=== PATIENT | female | born 1945 | race Caucasian/White ===

== ENCOUNTER 2018-12-17 11:08 | Inpatient (IN) | payer MEDICARE, MEDICAID ==
[~2018-12-17] VITALS: Ht 152.4 cm; Wt 121.0 kg
[2018-12-17] MEDS ORDERED: ALBUTEROL 0.5% (NEB) 2.5 MG/0.5 ML AMP INH STA (11:31)
[2018-12-17] MEDS ORDERED: METHYLPREDNISOLONE 125 MG INJ IV STA (11:31)
[2018-12-17] MEDS ORDERED: SOD CHLORIDE 0.9% 500 ML IV STA (11:31)
--- NOTE | 2018-12-17 11:48 | ERD ---
ER Documentation Chief Complaint Chief Complaint mild sob with low o2 sats per staff, no cough or congestion . mild rhonchi HPI 73-year-old woman brought in by EMS from shelter for shortness of breath, difficulty breathing, oxygen desaturation occurring for a few minutes prior to arrival. Patient does have obesity and psychiatric illness and is mostly bedbound. HPI was supplemented by speaking to EMS, reviewing shelter records, and later speaking to PMD over the phone. She has had no recent fevers or chills, no vomiting or diarrhea. ROS All systems reviewed and are negative except as per history of present illness. Medications Home Meds Reported Medications Escitalopram Oxalate* (Lexapro*) 5 Mg Tablet, 5 MG PO DAILY, #30 TAB 12/17/18 Benazepril Hcl* (Lotensin*) 20 Mg Tablet, 20 MG PO DAILY, #30 TAB HOLD FOR SBP <110 OR OR 60 12/17/18 Amlodipine Besylate* (Norvasc*) 10 Mg Tablet, 10 MG PO DAILY, TAB HOLD FOR SBP <110 OR OR<60 12/17/18 Lorazepam* (Lorazepam*) 1 Mg Tablet, 1 MG PO BID PRN for ANXIETY, #30 TAB 12/17/18 Aspirin (Low Dose Aspirin) 81 Mg Tablet.dr, 81 MG PO DAILY, #30 TAB 12/17/18 Allergies Allergies: Uncoded Allergies: COUGH DROPS (Allergy, Unknown, 12/17/18) PMhx/Soc Morbid obesity, schizophrenia, bedbound state, hypertension, history of [place], GERD, hypertension, chronic bronchitis (COPD?) FmHx Family History: No diabetes Physical Exam Vitals Vital Signs Date Temp Pulse Resp B/P (MAP) Pulse Ox O2 O2 Flow FiO2 Time Delivery Rate 12/17/18 92 20 115/61 91 Room Air 12:21 (79) 12/17/18 98.1 92 20 150/102 92 12:15 (118) 12/17/18 98 25 88 21 12:09 12/17/18 Nasal 4 11:20 Cannula 12/17/18 98.0 113 18 156/99 91 11:17 (118) Physical Exam GENERAL: Well-developed, well-nourished, appears dehydrated, dyspneic, afebrile HEENT: Dry mucous membranes, pink conjunctiva, no cervical spine tenderness or step-off deformities NEURO: Alert and oriented 1, pupils equal round reactive to light, no facial asymmetry, responsive to verbal stimuli CARDIAC: Tachycardic and regular, no murmurs rubs or gallops LUNGS: Diffuse wheezing bilaterally ABDOMEN: Soft nontender, no rigidity SKIN: Warm and dry to touch, no abrasions, contusions, or hematomas, no lacerations, no ecchymosis, no target lesions, and without ulcers EXTREMITIES: No clubbing cyanosis or edema, calves are bilaterally symmetrical, no Homans sign, no popliteal cord sign. Distal pulses equal and bilateral PSYCH: Agitated Result Diagram: 12/17/18 1131 12/17/18 1131 Results 24 hrs Laboratory Tests Test 12/17/18 11:27 12/17/18 11:31 12/17/18 11:33 Bedside Glucose 136 mg/dL White Blood Count 9.2 10^3/ul Red Blood Count 4.57 10^6/ul Hemoglobin 13.4 g/dl Hematocrit 43.4 % Mean Corpuscular Volume 95.0 fl Mean Corpuscular Hemoglobin 29.3 pg Mean Corpuscular 30.9 g/dl Hemoglobin Concent Red Cell Distribution Width 17.0 % Platelet Count 126 10^3/UL Mean Platelet Volume 10.9 fl Immature Granulocytes % 0.500 % Neutrophils % 50.2 % Lymphocytes % 38.3 % Monocytes % 10.3 % Eosinophils % 0.4 % Basophils % 0.3 % Nucleated Red Blood Cells % 0.0 /100WBC Immature Granulocytes # 0.050 10^3/ul Neutrophils # 4.6 10^3/ul Lymphocytes # 3.5 10^3/ul Monocytes # 1.0 10^3/ul Eosinophils # 0.0 10^3/ul Basophils # 0.0 10^3/ul Nucleated Red Blood Cells # 0.0 10^3/ul Urine Color YELLOW Urine Clarity SLIGHTLY CLOUDY Urine pH 5.0 Urine Specific [place] 1.016 Urine Ketones TRACE mg/dL Urine Nitrite NEGATIVE mg/dL Urine Bilirubin NEGATIVE mg/dL Urine Urobilinogen NEGATIVE mg/dL Urine Leukocyte Esterase NEGATIVE Froylan/ul Urine Microscopic RBC 1 /HPF Urine Microscopic WBC 2 /HPF Urine Mucus FEW /HPF Urine Hemoglobin NEGATIVE mg/dL Urine Glucose NEGATIVE mg/dL Urine Total Protein NEGATIVE mg/dl Blood Gas Specimen Source Blood arterial Arterial Blood Date Drawn 12/17/2018 12:20:18 PM Arterial Blood pH 7.349 (Temp corrected) Arterial Blood pCO2 47.9 mmhg (Temp correct) Arterial Blood pO2 55.3 mmHG (Temp corrected) Arterial Blood HCO3 25.8 mmol/L Arterial Blood Base Excess -0.3 mmol/L Arterial Blood 87.4 mmHG Oxygen Saturation Gonzales Test ACCEPTAB Arterial Blood Gas Right Radial Puncture Site Arterial 1.0 % Blood Carboxyhemoglobin Arterial Blood 0.3 % Methemoglobin Blood Gas A-a O2 37.1 mmHg Differential Oxyhemoglobin Percent 86.3 % Blood Gas Temperature 37.0 C Blood Gas Modality ROOM AIR FiO2 21.0 % Blood Gas Notified Whom M.D. Blood Gas Notified Time 12/17/2018 12:31:39 PM Sodium Level 140 mmol/L Potassium Level 6.0 mmol/L Chloride Level 103 mmol/L Carbon Dioxide Level 26 mmol/L Anion Gap 11 Blood Urea Nitrogen 30 mg/dl Creatinine 1.42 mg/dl Est Glomerular Filtrat mL/min Rate mL/min Glucose Level 135 mg/dl Calcium Level 8.8 mg/dl Total Bilirubin 0.1 mg/dl Direct Bilirubin 0.00 mg/dl Indirect Bilirubin 0.1 mg/dl Aspartate Amino 75 IU/L Transf (AST/SGOT) Alanine 72 IU/L Aminotransferase (ALT/SGPT) Alkaline Phosphatase 87 IU/L Troponin I 0.030 ng/ml B-Type Natriuretic Peptide 1100 PG/ML Total Protein 7.5 g/dl Albumin 3.6 g/dl Globulin 3.90 g/dl Albumin/Globulin Ratio 0.92 Lipase 70 U/L POC Venous Lactate 2.3 mmol/L Current Medications Medications Dose Sig/Estiven Start Time Status Last (Trade) Ordered Route PRN Stop Time Admin Dose Reason Admin Albuterol 10 mg ONCE STAT 12/17/18 DC 12/17/18 (Proventil INH 11:31 12:09 0.5% (Neb)) 12/17/18 11:35 125 mg ONCE STAT 12/17/18 DC 12/17/18 Methylprednis IV 11:31 11:45 olone Sodium 12/17/18 11:35 Succinate (Solu-Medrol) Sodium 500 ml @ Q1H STAT 12/17/18 DC 12/17/18 Chloride 500 mls/hr IV 11:31 11:45 12/17/18 12:30 Oseltamivir 150 mg ONCE ONCE 12/17/18 DC 12/17/18 Phosphate PO 12:30 12:57 (Tamiflu) 12/17/18 12:49 Procedures/MDM IV line was established patient was placed on chief medical physicist rhythm strip revealed a wide-complex tachycardia at 110 bpm with upright P and T waves. Patient was afebrile 1 view chest x-ray performed, read by me revealed cardiomegaly and a rotated film, atelectatic changes bilaterally, no acute infiltrates, no pneumothorax. EKG performed, read by me revealed a sinus tachycardia at 103 bpm, normal axis, left bundle branch block, no concerning ST elevations or depressions noted I administered 500 cc normal saline IV, methylprednisolone 125 mg IV, albuterol 10 mg via nebulizer Influenza A was positive, flu B was negative I administered Tamiflu 150 mg p.o. ABG on room air revealed a pH of 7.35, PCO2 48, PO2 55 consistent with COPD CBC was normal, electrolytes revealed acute hyperkalemia with potassium of 6 and dehydration and acute kidney injury with a BUN/creatinine of 30/1.4, liver function tests were normal, troponin was negative, BNP elevated, urinalysis negative for infection. Lactic acid elevated at 2.3. I do not suspect sepsis I feel lactic acid elevation is due to dehydration and COPD exacerbation Critical Care: Time: 43 minutes, this was time separate from other billable procedures. Treatments/Evaluations: Close monitoring and treatment of unstable vital signs, cardiorespiratory, and neurologic status, while maintaining tight balance of fluid, respiratory, and cardiac interventions. I treated the patient with dextrose 25 g IV and regular insulin 8 units IV for hyperkalemia in addition to the albuterol. I spoke to patient's PMD, patient will be admitted to telemetry setting for con tinued medical management and bronchodilator therapy Departure Diagnosis: Primary Impression: COPD (chronic obstructive pulmonary disease) COPD type: COPD with acute exacerbation Qualified Codes: J44.1 - Chronic obstructive pulmonary disease with (acute) exacerbation Additional Impressions: Influenza A H1N1 infection Psychosis Psychosis type: unspecified psychosis type Qualified Codes: F29 - Unspecified psychosis not due to a substance or known physiological condition Dehydration Acute kidney injury Acute hyperkalemia Condition: PJ Chin MD Dec 17, 2018 11:48
[2018-12-17] MEDS ORDERED: OSELTAMIVIR 75 MG CAP PO ONE (12:30)
[2018-12-17] MEDS ORDERED: LORA1TAB PO (12:55)
[2018-12-17] MEDS ORDERED: ASPI81TA52 PO (12:55)
[2018-12-17] MEDS ORDERED: AMLO-218 PO (12:56)
[2018-12-17] MEDS ORDERED: ESCI5TAB PO (12:57)
[2018-12-17] MEDS ORDERED: BENA20TA65 PO (12:57)
[2018-12-17] MEDS ORDERED: DIVA-48 PO (12:58)
[2018-12-17] MEDS ORDERED: DOCU-144 PO (12:58)
[2018-12-17] MEDS ORDERED: CLON-379 PO (12:59)
[2018-12-17] MEDS ORDERED: CLON1PAT32 TD (13:01)
[2018-12-17] MEDS ORDERED: SENN-36 PO (13:01)
[2018-12-17] MEDS ORDERED: PANT40TA3 PO (13:01)
[2018-12-17] MEDS ORDERED: QUET200T PO (13:02)
[2018-12-17] MEDS ORDERED: DEXTROSE 50% 50 ML SYRINGE IV STA (13:05)
[2018-12-17] MEDS ORDERED: INSULIN REGULAR, HUMAN 100 UNIT/1 ML 3ML VIAL IVP STA (13:05)
[2018-12-17] MEDS ORDERED: DEXTROSE 50% 50 ML SYRINGE IV PRN (13:30)
[2018-12-17] MEDS ORDERED: OLANZAPINE 10 MG VIAL IM ONE (15:00)
[2018-12-17 17:02] VITALS: PULSE 77
[2018-12-17 17:06] VITALS: BP 129/84; PULSE 75; RESP 20
[2018-12-17] MEDS ORDERED: CLONIDINE 0.2 MG/24 HR PATCH TRANSDERM SCH (18:00)
[2018-12-17] MEDS ORDERED: ALBUTEROL/IPRATROPIUM (NEB) 3 ML AMP HHN PRN (18:00)
[2018-12-17 18:13] VITALS: Ht 152.4 cm; Wt 121.0 kg
[2018-12-17] MEDS ORDERED: PENDING SANTYL ORDER FOR WOUND CARE XX PRN (19:00)
[2018-12-17 20:03] VITALS: BP 121/61; PULSE 73; RESP 20
[2018-12-17] MEDS: ALBUTEROL/IPRATROPIUM (NEB) 3 ML AMP HHN SCH (20:20)
[2018-12-17 21:13] VITALS: PULSE 77
[2018-12-17] MEDS: DIVALPROEX (EC) 500 MG TAB PO SCH (21:25)
[2018-12-17] MEDS: QUETIAPINE 100 MG TAB PO SCH (21:25)
[2018-12-17] MEDS: LORAZEPAM 1 MG TAB PO PRN (21:25)
[2018-12-17] MEDS: OSELTAMIVIR 75 MG CAP PO SCH (21:25)
[2018-12-17] MEDS: SENNA TAB PO SCH (21:25)
[2018-12-18] VITALS (13 sets, daily range): BP systolic 120–154; BP diastolic 59–80; PULSE 69–95; RESP 18–20
[2018-12-18] MEDS: ALBUTEROL/IPRATROPIUM (NEB) 3 ML AMP HHN SCH ×3 (08:00→20:00)
[2018-12-18] MEDS: AMLODIPINE 10 MG TAB PO SCH (09:00)
[2018-12-18] MEDS: OSELTAMIVIR 75 MG CAP PO SCH (09:00)
[2018-12-18] MEDS: SENNA TAB PO SCH ×2 (09:00→21:04)
[2018-12-18] MEDS: ASPIRIN (EC) 81 MG TAB PO SCH (09:00)
[2018-12-18] MEDS: DIVALPROEX (EC) 500 MG TAB PO SCH ×3 (09:00→21:04)
[2018-12-18] MEDS: QUETIAPINE 100 MG TAB PO SCH ×2 (09:00→21:04)
[2018-12-18] MEDS: PANTOPRAZOLE (EC) 40 MG TAB PO SCH (09:00)
[2018-12-18] MEDS: BENAZEPRIL 20 MG TAB PO SCH (09:00)
[2018-12-18] MEDS: ESCITALOPRAM 10 MG TAB PO SCH (09:00)
[2018-12-18] MEDS: DOCUSATE SODIUM 100 MG CAP PO SCH (09:00)
--- NOTE | 2018-12-18 11:32 | HP ---
DATE OF ADMISSION: 12/17/2018 HISTORY OF PRESENT ILLNESS: A 73-year-old female who was transferred upon my request from [facility] half-way facility for acute desaturation of oxygen. She was fine a few hours earlier, but then, when the nurse came in and found her that she is grasping for air, desaturating, 911 was called and she was transferred to the hospital. This is a patient who has past medical history of dementia , depression, bipolar disease with psychosis. She has generalized weakness, schizoaffective disorder , anxiety, hypothyroidism, obesity, pseudobulbar affect, hypercholesterolemia, hypertension, non-ST e levated MT in the past, gastroesophageal reflux disease, and insomnia. PAST SURGICAL HISTORY: Patient surgeries in the past, unknown of any surgeries. HOME MEDICATIONS: 1. Lexapro 5 mg p.o. daily. 2. Benazepril 20 mg p.o. daily. 3. Amlodipine 10 mg p.o. daily. 4. Lorazepam 1 mg b.i.d. for anxiety. 5. Aspirin 81 mg p.o. daily. ALLERGIES: NO KNOWN ALLERGIES. ACCORDING TO THEM WERE SOME COUGH DROPS. ALLERGIES: Unknown of any family history. No history of diabetes according to her. SOCIAL HISTORY: She resides at a half-way facility and she is most of the time confused, not reliable source of information, bipolar, schizoaffective, with psychosis. REVIEW OF SYSTEMS: Even though she is not a very reliable source, but at this time, she complains of shortness of breath and cough. She denies of any chest pain, denies of any abdominal pain, denies o f any nausea or vomiting. She denies of any hesitancy, urgency or pain during urination, and she den ies of any numbness of one side or the other. PHYSICAL EXAMINATION: GENERAL: She is alert and oriented -1, unknown if she is oriented. HEENT: Atraumatic, normocephalic. Pupils are equal and reactive to light. Extraocular muscles are intact. Nares are clear, no obstruction, no deviation of the septum. Oral cavity, normal oral hygie ne. Ear canals are clear, no signs of inflammation or infection. Tympanic membranes are intact. NECK: Supple. No JVD, no surgical scars, no lymph nodes palpable over the neck. CHEST: AP contour is within normal limits. BREASTS: Nipples are normal, no nipple retraction. HEART: S1, S2, regular rate and rhythm with cardiomegaly and systolic murmur over the apex. ABDOMEN: Soft, obese. Positive bowel sounds, no hepatosplenomegaly, no masses palpable over the abd omen and no rebound tenderness. LUNGS: She has scattered rhonchi over the lungs with mild expiratory wheezes, otherwise negative. ABDOMEN: As I mentioned. EXTREMITIES: No edema, clubbing or cyanosis of the extremities. LABORATORY DATA: CBC is 9.2, hemoglobin 13.4, hematocrit 43.4, and platelet 126. Then chemistry, he r BUN is 30, creatinine 1.42, sodium 140, potassium 6 high. ADMITTING DIAGNOSES: Acute dehydration, possible pneumonia, acute respiratory distress, chronic obst ructive pulmonary disease exacerbation, psychosis, acute kidney injury, hypertension. PLAN: The patient will be admitted to telemetry. We will start on IV hydration and antibiotics, and we will follow. Dictated By: BASIL PRINCE/EMORY Conf#: [id number] DID#: [id number]
[2018-12-18] MEDS: LORAZEPAM 1 MG TAB PO PRN (11:38)
--- NOTE | 2018-12-18 12:35 | PSY ---
Date/Time of Note Date/Time of Note DATE: 12/18/18 TIME: 12:26 Psychiatric Subjective Eval Consent Pt consented to telemedicine: No Subjective Evaluation Patient location: inpatient Chief Complaint: mild sob with low o2 sats per staff, no cough or congestion . mild rhonchi History of present illness Patient is a 73-year-old female who is currently admitted on the telemetry unit for acute desaturation of oxygen. On a [id number] evaluation, patient is very disorganized and confused, she is intrusive with poor boundaries she acts very bizarre difficult to redirect patient has poor impulse control has really does delusion states she has come to save the world. Was going off on tangents she talks nonsensical in poor contact with reality. Explained risk and benefits of medications and she states she wants 100 tablets of Seroquel because Seroquel makes her eyes open. We will continue to provide supportive therapy Past psychiatric history Long history of mental illness Hospitalization: other Medical history Problems Medical Problems: (1) Acute hyperkalemia Status: Acute (2) Acute kidney injury Status: Acute (3) COPD (chronic obstructive pulmonary disease) Status: Acute (4) Dehydration Status: Acute (5) Influenza A H1N1 infection Status: Acute (6) Psychosis Status: Acute Allergies: Uncoded Allergies: COUGH DROPS (Allergy, Unknown, 12/17/18) Substance Abuse Substance use: other Substance abuse history: No Prior substance abuse treatmen: No Social History Marital status: other DPA/Conservatorship: No Psychiatric Objective Eval Review of Systems: Review of Systems: Not Applicable Physical Examination: Appetite: Adequate Energy: Adequate Mental Status Examination: Appearance: Groomed Eye Contact: Good Psychomotor Activity: Slow Behavior: Cooperative, Suspicious Speech: Disorganized Mood: Anxious Though Process: Loose Thought Content: Hallucinations Orientation: x2 Cognition: Alert Insight: Severe Judgement: Severe Attention Span: Distractible Laboratory Results Laboratory Tests Test 12/17/18 11:27 12/17/18 11:31 12/17/18 11:33 12/17/18 13:24 Bedside Glucose 136 mg/dL 133 mg/dL White Blood 9.2 10^3/ul Count Red Blood Count 4.57 10^6/ul Hemoglobin 13.4 g/dl Hematocrit 43.4 % Mean Corpuscular 95.0 fl Volume Mean Corpuscular 29.3 pg Hemoglobin Mean Corpuscular 30.9 g/dl Hemoglobin Christi nt Red Cell 17.0 % Distribution Width Platelet Count 126 10^3/UL Mean Platelet 10.9 fl Volume Immature 0.500 % Granulocytes % Neutrophils % 50.2 % Lymphocytes % 38.3 % Monocytes % 10.3 % Eosinophils % 0.4 % Basophils % 0.3 % Nucleated Red 0.0 /100WBC Blood Cells % Immature 0.050 10^3/ul Granulocytes # Neutrophils # 4.6 10^3/ul Lymphocytes # 3.5 10^3/ul Monocytes # 1.0 10^3/ul Eosinophils # 0.0 10^3/ul Basophils # 0.0 10^3/ul Nucleated Red 0.0 10^3/ul Blood Cells # Urine Color YELLOW Urine Clarity SLIGHTLY CLOUDY Urine pH 5.0 Urine Specific 1.016 [place] Urine Ketones TRACE mg/dL Urine Nitrite NEGATIVE mg/dL Urine Bilirubin NEGATIVE mg/dL Urine NEGATIVE mg/dL Urobilinogen Urine Leukocyte NEGATIVE Froylan/ul Esterase Urine 1 /HPF Microscopic RBC Urine 2 /HPF Microscopic WBC Urine Mucus FEW /HPF Urine Hemoglobin NEGATIVE mg/dL Urine Glucose NEGATIVE mg/dL Urine Total NEGATIVE mg/dl Protein Blood Gas Blood arterial Specimen Source Arterial Blood 12/17/2018 12:20: Date Drawn 18 PM Arterial Blood 7.349 pH (Temp corrected) Arterial Blood 47.9 mmhg pCO2 (Temp correct) Arterial Blood 55.3 mmHG pO2 (Temp corrected) Arterial Blood 25.8 mmol/L HCO3 Arterial Blood -0.3 mmol/L Base Excess Arterial Blood 87.4 mmHG Oxygen Saturatio n Gonzales Test ACCEPTAB Arterial Blood Right Radial Gas Puncture Site Arterial 1.0 % Blood Carboxyhem oglobin Arterial Blood 0.3 % Methemoglobin Blood Gas A-a O2 37.1 mmHg Differential Oxyhemoglobin 86.3 % Percent Blood Gas 37.0 C Temperature Blood Gas ROOM AIR Modality FiO2 21.0 % Blood Gas M.D. Notified Whom Blood Gas 12/17/2018 12:31: Notified Time 39 PM Sodium Level 140 mmol/L Potassium Level 6.0 mmol/L Chloride Level 103 mmol/L Carbon Dioxide 26 mmol/L Level Anion Gap 11 Blood Urea 30 mg/dl Nitrogen Creatinine 1.42 mg/dl Est Glomerular mL/min Filtrat Rate mL/min Glucose Level 135 mg/dl Calcium Level 8.8 mg/dl Total Bilirubin 0.1 mg/dl Direct Bilirubin 0.00 mg/dl Indirect 0.1 mg/dl Bilirubin Aspartate Amino 75 IU/L Transf (AST/SGOT ) Alanine 72 IU/L Aminotransferase (ALT/SGPT) Alkaline 87 IU/L Phosphatase Troponin I 0.030 ng/ml B-Type 1100 PG/ML Natriuretic Peptide Total Protein 7.5 g/dl Albumin 3.6 g/dl Globulin 3.90 g/dl Albumin/Globulin 0.92 Ratio Lipase 70 U/L POC Venous 2.3 mmol/L Lactate Test 12/17/18 13:48 12/18/18 11:41 12/18/18 11:46 Bedside Glucose 243 mg/dL Sodium Level 142 mmol/L Potassium Level 4.8 mmol/L Chloride Level 105 mmol/L Carbon Dioxide 22 mmol/L Level Anion Gap 15 Blood Urea 54 mg/dl Nitrogen Creatinine 1.66 mg/dl Est Glomerular mL/min Filtrat Rate mL/min Glucose Level 158 mg/dl Calcium Level 8.8 mg/dl White Blood 8.9 10^3/ul Count Red Blood Count 4.67 10^6/ul Hemoglobin 13.9 g/dl Hematocrit 44.3 % Mean Corpuscular 94.9 fl Volume Mean Corpuscular 29.8 pg Hemoglobin Mean Corpuscular 31.4 g/dl Hemoglobin Christi nt Red Cell 16.4 % Distribution Width Platelet Count 145 10^3/UL Mean Platelet 10.6 fl Volume Immature 0.300 % Granulocytes % Neutrophils % 73.9 % Lymphocytes % 18.3 % Monocytes % 7.4 % Eosinophils % 0.0 % Basophils % 0.1 % Nucleated Red 0.0 /100WBC Blood Cells % Immature 0.030 10^3/ul Granulocytes # Neutrophils # 6.6 10^3/ul Lymphocytes # 1.6 10^3/ul Monocytes # 0.7 10^3/ul Eosinophils # 0.0 10^3/ul Basophils # 0.0 10^3/ul Nucleated Red 0.0 10^3/ul Blood Cells # Assessment and Plan Assessment/Diagnosis Diagnosis Schizoaffective disorder bipolar type rule out dementia with behavioral disturbance Recommendation/Plan Medication Management Seroquel 200 mg at bedtime, Depakote 500 mg twice a day and Lexapro 5 mg daily Multiple antipsychotics: No Discharge Disposition: Other Legal Status: Voluntary (Patient does not meets criteria for 5150 hold) YANNA RODAS NP Dec 18, 2018 12:35
[2018-12-18] MEDS: COLLAGENASE 5 GM (UD JAR) TOP SCH (16:50)
[2018-12-18] MEDS ORDERED: HALOPERIDOL 5 MG INJ IV PRN (17:30)
[2018-12-18] MEDS: OSELTAMIVIR 30 MG CAP PO SCH (21:05)
[2018-12-19] VITALS (11 sets, daily range): BP systolic 102–145; BP diastolic 50–83; PULSE 68–88; RESP 16–22
[2018-12-19] MEDS: ALBUTEROL/IPRATROPIUM (NEB) 3 ML AMP HHN SCH ×3 (08:15→20:45)
[2018-12-19] MEDS: ASPIRIN (EC) 81 MG TAB PO SCH (08:16)
[2018-12-19] MEDS: DOCUSATE SODIUM 100 MG CAP PO SCH (08:16)
[2018-12-19] MEDS: DIVALPROEX (EC) 500 MG TAB PO SCH ×3 (08:16→21:38)
[2018-12-19] MEDS: ESCITALOPRAM 10 MG TAB PO SCH (08:17)
[2018-12-19] MEDS: PANTOPRAZOLE (EC) 40 MG TAB PO SCH (08:17)
[2018-12-19] MEDS: BENAZEPRIL 20 MG TAB PO SCH (08:17)
[2018-12-19] MEDS: AMLODIPINE 10 MG TAB PO SCH (08:17)
[2018-12-19] MEDS: SENNA TAB PO SCH ×2 (08:18→21:39)
[2018-12-19] MEDS: COLLAGENASE 5 GM (UD JAR) TOP SCH (08:18)
[2018-12-19] MEDS: OSELTAMIVIR 30 MG CAP PO SCH ×2 (08:18→21:40)
[2018-12-19] MEDS: QUETIAPINE 100 MG TAB PO SCH ×2 (08:18→21:38)
[2018-12-19] MEDS: HALOPERIDOL 5 MG INJ IM PRN (10:36)
[2018-12-19] MEDS: OLANZAPINE (ODT) 5 MG TAB ODT SCH ×2 (11:19→21:38)
[2018-12-19] MEDS: OLANZAPINE 10 MG VIAL IM PRN (14:23)
[2018-12-20] VITALS (9 sets, daily range): BP systolic 124–147; BP diastolic 58–82; PULSE 20–89; RESP 16–20
[2018-12-20] MEDS: ALBUTEROL/IPRATROPIUM (NEB) 3 ML AMP HHN SCH ×3 (08:05→21:55)
[2018-12-20] MEDS: DIVALPROEX (EC) 500 MG TAB PO SCH ×4 (08:33→21:00)
[2018-12-20] MEDS: COLLAGENASE 5 GM (UD JAR) TOP SCH ×2 (08:33→08:55)
[2018-12-20] MEDS: QUETIAPINE 100 MG TAB PO SCH ×2 (08:34→08:54)
[2018-12-20] MEDS: AMLODIPINE 10 MG TAB PO SCH ×2 (08:34→08:54)
[2018-12-20] MEDS: OSELTAMIVIR 30 MG CAP PO SCH ×4 (08:34→21:00)
[2018-12-20] MEDS: ESCITALOPRAM 10 MG TAB PO SCH ×2 (08:34→08:53)
[2018-12-20] MEDS: OLANZAPINE (ODT) 5 MG TAB ODT SCH ×3 (08:35→21:00)
[2018-12-20] MEDS: SENNA TAB PO SCH ×3 (08:35→21:00)
[2018-12-20] MEDS: ASPIRIN (EC) 81 MG TAB PO SCH ×2 (08:35→08:53)
[2018-12-20] MEDS: PANTOPRAZOLE (EC) 40 MG TAB PO SCH ×2 (08:35→08:54)
[2018-12-20] MEDS: DOCUSATE SODIUM 100 MG CAP PO SCH ×2 (08:35→08:53)
[2018-12-20] MEDS: BENAZEPRIL 20 MG TAB PO SCH ×2 (08:35→08:53)
[2018-12-20] MEDS: OLANZAPINE 10 MG VIAL IM PRN (09:58)
[2018-12-20] MEDS ORDERED: LORAZEPAM 2 MG INJ IM PRN (10:00)
[2018-12-20] MEDS ORDERED: CHLORPROMAZINE 25 MG INJ IM PRN (13:00)
[2018-12-20] MEDS ORDERED: DIPHENHYDRAMINE 50 MG INJ IM PRN (13:00)
[2018-12-20] MEDS ORDERED: OSELTAMIVIR 30 MG CAP PO SCH (13:28)
[2018-12-20] MEDS ORDERED: CHLORPROMAZINE 50 MG INJ IM PRN (20:00)
[2018-12-21 01:25] VITALS: BP 150/83; PULSE 85; RESP 16
[2018-12-21 07:47] VITALS: BP 137/90; PULSE 74; RESP 19
[2018-12-21] MEDS: COLLAGENASE 5 GM (UD JAR) TOP SCH (08:35)
[2018-12-21] MEDS: ESCITALOPRAM 10 MG TAB PO SCH (08:36)
[2018-12-21] MEDS: BENAZEPRIL 20 MG TAB PO SCH (08:36)
[2018-12-21] MEDS: OLANZAPINE (ODT) 5 MG TAB ODT SCH ×2 (08:36→20:15)
[2018-12-21] MEDS: SENNA TAB PO SCH ×2 (08:36→20:15)
[2018-12-21] MEDS: AMLODIPINE 10 MG TAB PO SCH (08:37)
[2018-12-21] MEDS: ASPIRIN (EC) 81 MG TAB PO SCH (08:37)
[2018-12-21] MEDS: PANTOPRAZOLE (EC) 40 MG TAB PO SCH (08:37)
[2018-12-21] MEDS: DOCUSATE SODIUM 100 MG CAP PO SCH (08:37)
[2018-12-21] MEDS: DIVALPROEX (EC) 500 MG TAB PO SCH ×3 (08:38→20:15)
[2018-12-21] MEDS: OSELTAMIVIR 30 MG CAP PO SCH ×2 (08:42→20:15)
[2018-12-21] MEDS: ALBUTEROL/IPRATROPIUM (NEB) 3 ML AMP HHN SCH ×3 (09:39→19:53)
[2018-12-21] MEDS: HALOPERIDOL 5 MG INJ IM PRN (11:51)
[2018-12-21 14:36] VITALS: BP 134/84; PULSE 82; RESP 18
[2018-12-21] MEDS ORDERED: FUROSEMIDE 40 MG INJ IV SCH (15:30)
[2018-12-21] MEDS: FUROSEMIDE 40 MG TAB PO SCH (15:48)
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
--- NOTE | 2018-12-21 16:41 | PN ---
DATE: 12/21/2018 SUBJECTIVE: Today, the patient is off restraints and she is a bit calmer than yesterday, still screa saida, but much calmer than yesterday. She was able to take her medications today in the morning and she ate breakfast. The patient, as I mentioned, she came in for respiratory distress, possible pneum onia, influenza A. The patient was started on Tamiflu antibiotic treatment and the breathing treatme nts which on and off she would refuse. The patient had behavioral issues which were more or less con trolled moderately by the psychiatrist. Today, she denies of any discomfort. She denies of any head aches. She denies of any chest pain. She denies of any abdominal pain, nausea, vomiting. She denie s of any hesitancy, urgency or pain during urination. PHYSICAL EXAMINATION: GENERAL: Alert and oriented x1, in no distress, still screaming on and off, responds to the question s most of the time inappropriately. VITAL SIGNS: She is afebrile. Today, the blood pressure is 138/73. Her saturation is 92% on room a ir, pulse is 82 and she is afebrile. HEENT: Head is atraumatic, normocephalic. Pupils are equal and reactive to light. Extraocular musc les are intact. Nares are clear. No obstruction, no deviation of septum. Oral cavity: Normal oral hygiene. CHEST: AP contour is within normal limits. BREASTS: Breasts and nipples are normal. HEART: S1, S2. Regular rate and rhythm with mild cardiomegaly. LUNGS: Very minimal rhonchi over bases of the lungs. ABDOMEN: Obese. Positive bowel sounds. No hepatosplenomegaly, no masses palpable over the abdomen and no rebound tenderness. EXTREMITIES: No edema, clubbing or cyanosis of the extremities. LABORATORY DATA: Today chemistry: Sodium is 147, BUN is 27 much better than a day ago. Creatinine is normal. Potassium is 5.0. BNP is a little elevated compared to 2 days before. CBC: White blood cells 7.9, hemoglobin 13.7, hematocrit 43.9, platelets are 159. DIAGNOSTIC DATA: Chest x-ray: Much improved with a chest x-ray today with almost resolved bibasilar atelectasis. MICROBIOLOGY: Cultures are negative. ASSESSMENT AND PLAN: We will continue treating the patient with Tamiflu. We will keep off restraint s. Tolerating it well and if she continues taking medications, possible discharge tomorrow back to [facility]. Dictated By: BASIL FALCON MD SB/EMORY Conf#: [id number] DID#: [id number] CC: CLARK RAINES AUTOCAD DRAFTSMAN;*EndCC*
[2018-12-21] MEDS ORDERED: CEPASTAT LOZENGE MT PRN (19:30)
[2018-12-21 19:53] VITALS: BP 164/74; PULSE 74; RESP 18
[2018-12-22 03:30] VITALS: BP 171/104; PULSE 69; RESP 20
[2018-12-22 07:47] VITALS: BP 147/70; PULSE 77; RESP 22
[2018-12-22] MEDS: ALBUTEROL/IPRATROPIUM (NEB) 3 ML AMP HHN SCH ×2 (08:00→14:00)
[2018-12-22] MEDS: SENNA TAB PO SCH (08:12)
[2018-12-22] MEDS: ASPIRIN (EC) 81 MG TAB PO SCH (08:12)
[2018-12-22] MEDS: COLLAGENASE 5 GM (UD JAR) TOP SCH (08:12)
[2018-12-22] MEDS: OLANZAPINE (ODT) 5 MG TAB ODT SCH (08:12)
[2018-12-22] MEDS: ESCITALOPRAM 10 MG TAB PO SCH (08:13)
[2018-12-22] MEDS: DIVALPROEX (EC) 500 MG TAB PO SCH ×2 (08:13→13:10)
[2018-12-22] MEDS: BENAZEPRIL 20 MG TAB PO SCH (08:13)
[2018-12-22] MEDS: PANTOPRAZOLE (EC) 40 MG TAB PO SCH (08:13)
[2018-12-22] MEDS: AMLODIPINE 10 MG TAB PO SCH (08:13)
[2018-12-22] MEDS: DOCUSATE SODIUM 100 MG CAP PO SCH ×2 (08:13→13:13)
[2018-12-22] MEDS: FUROSEMIDE 40 MG TAB PO SCH (08:13)
[2018-12-22] MEDS: OSELTAMIVIR 30 MG CAP PO SCH (09:20)
--- NOTE | 2018-12-22 20:55 | DS ---
DATE OF ADMISSION: 12/17/2018 DATE OF DISCHARGE: 12/22/2018 HOSPITAL COURSE: The patient came from [facility] for acute desaturation, hypoxia, cough, shortness of breath and wheezing. Emergency room evaluated the patient. Influenza A positive with COPD exacerbation and admitted the patient for further evaluation and treatment and w as started on Tamiflu. The patient has past medical history of psychosis, schizoaffective disorder w ith psychosis, agitation, behavioral disturbances, hypertension, degenerative joint disease, gastroes ophageal reflux disease, obesity and mostly bed-bound. The patient was started on Tamiflu, IV antibi otics, breathing treatments. During the stay in the hospital, patient was very noncompliant, frequen tly refusing medications, hitting nurses and very aggressive behavior. She was seen by the psychiatr y, started on increased dose of medications to control her behavior and agitation. She tolerated it gradually well, started taking medications and improving with decreased white count, decreased BMP an d vitals of blood pressures and afebrile and stable condition. Therefore, on 12/22/2018, we decided to discharge the patient back to [facility], [place] after completing her Tamiflu and also being on no restr aints for over 24 hours. DISCHARGE DIAGNOSES: Therefore, the patient was discharged to [facility] [place] in stable condition with diagnoses of: 1. Influenzae A, resolved. 2. Chronic obstructive pulmonary disease exacerbation. 3. Morbid obesity. 4. Hypertension. 5. Psychosis with dementia. 6. Aggressive behavior. 7. Degenerative joint disease. DISPOSITION: The patient will be discharged today back to [facility]. Dictated By: BASIL PRINCE/EMORY Conf#: [id number] DID#: [id number] CC: CLARK RAINES THERMAL INTELLIGENCE ANALYST;*End*
== END 2018-12-22 17:36 | DRG 190 ==
LOC: E/R 11:08 → 6WM 12:53 → 5EC 12-18 23:20
PROVIDERS: ADMIT Family Medicine; ATTEND Family Medicine
DX: J44.1 Chronic obstructive pulmonary disease with (acute) exacerbation (principal); J10.00 Influenza due to other identified influenza virus with unspecified type of pneumonia; N17.9 Acute kidney failure, unspecified; F23 Brief psychotic disorder; Z68.43 Body mass index [BMI] 50.0-59.9, adult; E87.5 Hyperkalemia; E86.0 Dehydration; F25.0 Schizoaffective disorder, bipolar type; R53.1 Weakness; F41.9 Anxiety disorder, unspecified; E03.9 Hypothyroidism, unspecified; R06.03 Acute respiratory distress; I10 Essential (primary) hypertension; E66.01 Morbid (severe) obesity due to excess calories; M19.90 Unspecified osteoarthritis, unspecified site
CPT/HCPCS: 36415; 36600; 71045; 80048; 80053; 81001; 81003; 82803; 82962; 83605; 83690; 83880; 84484; 85025; 87040; 87081; 87086; 87400; 93005; 94640; 94644; 94664; 96374; J1200; J1630; J1815; J2060; J2930; J3230; J7040